=== PATIENT | female | born 1945 | race Caucasian/White ===

== ENCOUNTER → 2023-04-15 09:21 | Outpatient (REF) | payer MEDICARE, OTHER, SELFPAY ==
[2023-04-15 11:52] LABS: Blood Urea Nitrogen 32 mg/dl (7-17); Calcium 8.8 mg/dl (8.4-10.2); Carbon Dioxide 33 mmol/L (22-30); Chloride 102 mmol/L (98-107); Glucose 79 mg/dl (70-99); Potassium 4.7 mmol/L (3.5-5.1); Sodium 135 mmol/L (135-145); eGFR > 60.00
== END ==
LOC: REG 09:21
PROVIDERS: ATTENDING PHYSICIAN Nurse Practitioner Adult Health; FAMILY PHYSICIAN Internal Medicine
DX: I10 Essential (primary) hypertension (principal)
CPT/HCPCS: 36415; 80048

== ENCOUNTER → 2023-05-15 16:15 | Outpatient (REF) | payer MEDICARE, OTHER, SELFPAY ==
[2023-05-15 17:59] LABS: Creatine Phosphokinase 67 U/L (30-135)
[2023-05-15 18:01] LABS: Erythrocyte Sed Rate 56 mm/hour (0-20)
[2023-05-15 18:39] LABS: TSH 1.44 uIU/ml (0.47-4.68)
[2023-05-15 19:14] LABS: Vitamin B12 976 pg/ml (239-931)
== END ==
LOC: REG 16:15
PROVIDERS: ATTENDING PHYSICIAN Specialist; FAMILY PHYSICIAN Internal Medicine
DX: M79.10 Myalgia, unspecified site (principal); D51.8 Other vitamin B12 deficiency anemias; E03.9 Hypothyroidism, unspecified
CPT/HCPCS: 36415; 82550; 82607; 82746; 84436; 84443; 85652; 86140

== ENCOUNTER 2023-06-24 15:44 | Inpatient (IN) | payer MEDICARE, OTHER, SELFPAY ==
[2023-06-24] VITALS (10 sets, daily range): BP systolic 94–126; BP diastolic 43–69; PULSE 73–86; BMI 22.8; BMI 23.1
[2023-06-24 11:40] LABS: % Basophils 0.6 % (0-2); % Immature Granulocytes 0.4 % (0-0.5); % Lymphocytes 22.9 % (20.5-51.1); % Monocytes 9.9 % (1.7-9.3); % Neutrophils 64.2 % (42.2-75.2); Absolute Basophils 0.1 10^3/uL (0-0.2); Absolute Eosinophils 0.2 10^3/uL (0-0.7); Absolute Lymphocytes 2.4 10^3/uL (1.2-3.4); Absolute Neutrophils 6.7 10^3/uL (1.4-6.5); Hematocrit 37.1 % (37.0-47.0); Hemoglobin 12.3 g/dL (12.0-16.0); Mean Corp Hgb Conc. 33.2 g/dL (33.0-37.0); Mean Corpuscular Hgb 30.1 pg (27.0-31.0); Mean Corpuscular Volume 90.9 fL (81.0-99.0); Mean Platelet Volume 10.1 fL (7.4-10.4); Nucleated Red Blood Cells % 0 %; Platelet Count 311 10^3/uL (130-400); Red Blood Cell Count 4.08 10^6/uL (4.20-5.40); Red Cell Dist. Width 14.4 % (11.5-14.5); White Blood Cell Count 10.5 10^3/uL (4.8-10.8)
[2023-06-24 11:55] LABS: ALT (SGPT) 26 U/L (0-35); AST (SGOT) 32 U/L (14-36); Albumin 4.2 g/dl (3.5-5.0); Alkaline Phosphatase 72 U/L (38-126); Blood Urea Nitrogen 79 mg/dl (7-17); Calcium 9.8 mg/dl (8.4-10.2); Carbon Dioxide 25 mmol/L (22-30); Chloride 102 mmol/L (98-107); Glucose 99 mg/dl (70-99); Potassium 4.8 mmol/L (3.5-5.1); Sodium 134 mmol/L (135-145); Total Bilirubin 0.5 mg/dl (0.2-1.3); Total Protein 7.1 g/dl (6.3-8.2); eGFR 30.13
[2023-06-24 12:07] LABS: Troponin I < 0.012 ng/ml
--- NOTE | 2023-06-24 13:29 | ED.GENMED ---
History of Present Illness
General
Chief Complaint: Chest Pain
Time Seen by Provider: 06/24/23 13:10
Travel History
Have you had any contact with someone who has COVID-19?: No
Do you have any symptoms of coronavirus? Fever > 100 degrees, chills, cough, shortness of breath, sore throat, loss of taste or smell, muscle aches, or headache?: No
History of Present Illness
History of Present Illness:
78-year-old female with history of kyn-ogtxpaa-mhwggzgiy diabetes, hypertension, hyperlipidemia, and lung cancer presents to the emergency department for evaluation chest pain shortness of breath ongoing for the past week. Symptoms increased today
to at her primary care physician who referred her to the emergency department. She also endorses diarrhea, no abdominal pain or vomiting, over the past 1 to 2 weeks. Has had generally poor oral intake over this time as well. Does take a diuretic
but does not take it every day, uses this on demand for leg swelling.
Past History
Past History
ED Past Medical History: None and Other (Patient takes Lasix on p.r.n. basis for peripheral edema of uncertain etiology)
ED Past Surgical History: Other (Patient is status post tonsillectomy and thyroidectomy. )
Patient has exhibited threatening behavior?: No
PSI?: No
Social History
Tobacco: Smoker
Personal: Single
Living: alone
Employment: Retired
Family History
Family History: Negative Diabetes, Hypertension, Early CAD, Asthma or Cancer
Review of Systems
Review of Systems
Allergies reviewed?: Yes
All Other Systems: ROS reviewed and negative except as documented in HPI and ROS
Phy Exam
Physical Exam
Physical Exam:
GEN: Well appearing, NAD, WDWN
HEENT: Oral mucosa moist, no scleral icterus
Cardiac: Regular rate and rhythm, no murmurs
Lung: No respiratory distress, no tachypnea
MSK: No gross deformity or injuries
Skin: Good color, no pallor or jaundice, no rashes
Neuro: AO x3, moves all extremities freely
Psych: Calm, cooperative
Scores
Heart Score for Chest Pain Patients
STEMI patient?: No
History: Slightly or Non-Suspicious
ECG: Normal
Age: >/= 65 years
Risk Factors: 1 or 2 Risk Factors
Troponin: </= Normal Limit
Heart Score for Chest Pain Patients: 3
Heart Score Risk: 2.5% MACE over next 6 weeks
Course
Orders/Labs/Results
Orders:
Orders
06/24/23 11:19
EKG [Electrocardiogram (*1)] Urgent
Reason for Study: Chest Pain
EKG- Treatment ONCE
06/24/23 11:27
Complete Blood Count/With Diff Urgent
Comprehensive Metabolic Panel Urgent
Magnesium Urgent
Phosphorus Urgent
Comment: MAG & PHOS ADDED ON BY FLOOR 3:20PM 06-23=-24
Troponin I Urgent
06/24/23 13:27
0.9% Sodium Chloride 1000 ml [Nss] 1,000 ml IV BOLUS
06/24/23 13:28
CR Chest - 2 Views Urgent
Comment:
Reason For Exam: chest pain/SOB
06/24/23 Dinner
Regular
At Your Request: Limited, Physics Instructor Required
Does patient need a safe tray?: No
06/24/23 15:21
Add On- LAB Urgent
Tests Added?: mag phos
06/24/23 15:22
Admit/Transfer Patient As Directed
Co-Sign Provider:
Level of Care: Inpatient admission
Assign to:: Telemetry
Physician / Group: susan espinosa
Diagnosis: colton 2/2 diarrhea/ diuretics/decreased oral intake
Reason for Telemetry: Arrhythmia
Date to Stop Telemetry: 06/27/23
Time to Stop Telemetry: 11:00
Reason for Hospitalization: colton 2/2 diarrhea/ diuretics/decreased oral intake
Expected length of stay greater than two midnights?: Yes
ELOS- Estimated Length of Stay in days: 3
I certify the patient meets the requirements for IP care: Yes
Code Status As Directed
Resuscitation Status: Full Code
Urinalysis Reflex To Culture Routine
06/24/23 15:27
Stool Culture Routine
YORDY Source: Feces/Stool
Specimen Description:
Stool For WBC Routine
YORDY Source: Feces/Stool
Specimen Description:
06/24/23 15:30
0.9% Sodium Chloride 1000 ml [Nss] 1,000 ml IV 100 mls/hr
06/24/23 17:03
COVID-19 Antigen Urgent
Source: Nasal Swab
06/27/23 11:00
DC Protocol for Telemetry ONCE
Abnormal Lab Results
06/24/23
11:27
RBC 4.08 L 10^6/uL
(4.20-5.40)
Absolute Neuts (auto) 6.7 H 10^3/uL
(1.4-6.5)
Absolute Monos (auto) 1.0 H 10^3/uL
(0.1-0.6)
Monocytes % 9.9 H %
(1.7-9.3)
Sodium 134 L mmol/L
(135-145)
BUN 79 H mg/dl
(7-17)
Creatinine 1.7 H mg/dL
(0.6-1.0)
Phosphorus 5.9 H mg/dl
(2.5-4.5)
06/24/23 11:27
06/24/23 11:27
Vital Signs
Initial and Last Documented VS:
Initial Vital Signs
Temp Pulse Resp BP Pulse Ox
98.6 F 77 18 101/63 94
06/24/23 11:16 06/24/23 11:16 06/24/23 11:16 06/24/23 11:16 06/24/23 11:16
Last Documented Vital Signs
Temp Pulse Resp BP Pulse Ox
98.6 F 83 14 101/59 100
06/24/23 11:16 06/24/23 19:15 06/24/23 19:15 06/24/23 19:00 06/24/23 19:15
MDM/Problems Addressed
MDM/Problems Addressed:
Patient's symptoms are likely on the basis of her acute kidney injury and severe uremia. EKG is nonischemic and troponins are negative. Will admit for IV fluids and further assessment
Comment
Comment:
EKG independently interpreted by me shows normal sinus rhythm at a rate of [address] changes, T wave flattening noted inferiorly, no change compared to prior tracing from October 2021
*Critical Care Note
Total Time (30-74mins, 75-104mins- exclusive of procedures): Not Applicable
ED Attending Note
-
Portions of this chart may have been created with voice recognition software.� Occasional wrong word or��sound alike� substitutions may have occurred due to the inherent limitations of voice recognition software.
Discharge Plan
Departure
Patient Disposition: Admit
Date of Disposition: 06/24/23
Time of Disposition: 14:13
Admit to: Med/Surg
Presentation/result/management discussed w/ accepting MD/DO: Hospitalist
Discharge Problem:
Acute kidney injury
Interventions
Interventions:
*Risk Screen - Suicide Last Done: 06/24/23 12:09
*General Assessment Last Done: 06/24/23 11:25
*Neglect/Abuse Screening Last Done: 06/24/23 12:09
ED- Fall Risk Assessment Last Done: 06/24/23 12:10
*ED COVID-19 Vaccine History Last Done: 06/24/23 12:09
ED- Cardiac Assessment Last Done: 06/24/23 12:10
[2023-06-24] MEDS: NSS 1000 IV ×2 (13:54→17:13)
--- NOTE | 2023-06-24 14:38 | HPS.HSE ---
Family Physician
-
Family Physician: Jewels Levy
Chief Complaint
-
Dizziness with standing, decreased oral intake, diarrhea x 4 episodes
History of Present Illness
78-year-old female complaining of 2 days decreased oral intake with watery diarrhea x 4 episodes brown in color, dizziness upon standing only. She denies any diarrhea today. She reports despite the symptoms she did take her lisinopril and
hydrochlorothiazide. She denies any recent antibiotics, or travel. She denies fever, chills, chest pain, palpitations, shortness breath, cough, abdominal pain, nausea, vomiting, urinary symptoms. She does report she did void this a.m. small
amount. She also states that she had recent exposure to her friend 5 days ago who currently has COVID. Patient reports she had COVID October 2022, February 2023 despite 7 COVID vaccines. Other past medical history includes nicotine abuse quit 4
years ago, non-small cell lung CA Dx September 2018 status post radiation, new nodule found due for radiation at [facility], HTN, HLD, paroxysmal A-fib status post cardiac ablation June 2022, DM2, arthritis, osteopenia, chronic peripheral neuropathy,
chronic back pain, chronic leg spasms, chronic left arm lymphedema from breast radiation, benign breast nodule removal, spinal stenosis, scoliosis wears back brace, partial thyroidectomy, benign 9 tumors removed from thyroid, parathyroidectomy,
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
shingles, encephalitis as child, dental implants
Medical History
Past Medical History
Past Medical History: Reports Other
Additional Past Medical History:
HTN
HLD
Paroxysmal A-fib
DM2
A-fib with ablation June 2022 [facility]
Arthritis
Chronic peripheral neuropathy/chronic back pain
Lymphedema left arm from breast radiation
COVID October 2022, February 2023
Non-small cell lung CA September 2018 status post radiation left lower lobe, recent new nodule [facility]
Spinal stenosis
Scoliosis wears back brace
Tumor left breast removal benign, bilateral breast augmentation
Partial thyroidectomy, 9 tumors removal from thyroid
Parathyroidectomy
lymph nodes removed anterior neck
Minus radiation as
Glaucoma with laser treatment goals I
Shingles with chronic neuropathy right side of head
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
Encephalitis as child
Dental implants
Past Surgical History: Reports Other
Additional Past Surgical History:
Tonsillectomy
Thyroidectomy partial�benign
9 tumors removed from thyroid benign
Anterior lymph node removal neck benign
Left breast lump removal benign
Bilateral breast implants
Cataract extraction bilateral lens implants
Tonsillectomy/adenoidectomy
Laser eye treatment glaucoma
Dental implants
Cardiac ablation June 2022 [facility]
Parathyroidectomy
Social History
Tobacco: Former Smoker (20 years 1/2 pack a day quit approximately 50 years ago)
Alcohol: None
Drug: None
Personal: Single
Living: Alone
Employment: Retired
Family History
Family History: Other (Mother ductal carcinoma, CVA/ID age 70, father age 64 mesothelioma, brother was murdered)
Allergies / Home Medications
Allergies reflects when Allergies were last updated in [employer].
Home Medications with original date entered in [employer]
Allergy/Medication List:
Allergies
Allergy/AdvReac Type Severity Reaction Status Date / Time
adhesive tape Allergy Unknown reddness & Verified 11/12/21 15:30
itchy
erythromycin base Allergy Unknown Shortness Verified 11/12/21 15:30
[Erythromycin Base] of Breath
Gadolinium-Containing Allergy Unknown Fatigue Verified 11/12/21 15:30
Contrast Medi and
breathing
Home Medications
Cataplex F 1 tab PO DAILY Supplement 02/17/20
Neurotro Phin 1 tab PO DAILY Supplement 02/17/20
Ligaplex 2 1 cap PO DAILY Supplement 06/27/21
cod liver oil 1 cap PO DAILY Supplement 06/27/21
guaifenesin 1,200 mg tablet, extended release 12 hr (Mucinex) 1,200 mg PO DAILY Cough 06/27/21
rosuvastatin 5 mg tablet 5 mg PO DAILY High cholesterol 06/27/21
vitamin B complex 1 tab PO DAILY Supplement 06/27/21
Cardio Supplement 1 tab PO DAILY 06/24/23
Renafood Supplement 1 tab PO DAILY 06/24/23
bisacodyl 5 mg tablet (Laxative (bisacodyl)) 10 mg PO DAILYPRN PRN constipation 06/24/23
calcium carbonate 650 mg PO DAILY 06/24/23
cholecalciferol (vitamin D3) 50 mcg (2,000 unit) tablet 50 mcg PO DAILY 06/24/23
ciclopirox 8 % topical solution 1 applic topical BATISTA left big toe 06/24/23
citicoline 500 mg capsule ([employer]) 500 mg PO DAILY 06/24/23
coenzyme Q10 100 mg capsule (CoQ-10) 100 mg PO DAILY 06/24/23
cyclobenzaprine 5 mg tablet 5 mg PO TID PRN muscle spasms 06/24/23
diltiazem HCl 120 mg capsule,24 hr,extended release (Tiadylt ER) 120 mg PO DAILY 06/24/23
hydrochlorothiazide 12.5 mg capsule 12.5 mg PO DAILY 06/24/23
ipratropium 0.5 mg-albuterol 3 mg (2.5 mg base)/3 mL nebulization soln 3 ml inhalation R Q6HPRN PRN sob 06/24/23
lidocaine 5 % topical patch 1 patch topical DAILY PRN apply to right shoulder 06/24/23
lisinopril 5 mg tablet 5 mg PO DAILY 06/24/23
lutein 1 cap PO DAILY 06/24/23
magnesium gluconate 12.5 mg magnesium (250 mg) tablet 500 mg PO DAILY 06/24/23
meloxicam 7.5 mg tablet 15 mg PO DAILY 06/24/23
metformin 500 mg tablet,extended release 24 hr 1,000 mg PO QPM 06/24/23
metformin 500 mg tablet,extended release 24 hr 500 mg PO DAILY 06/24/23
niacin 50 mg tablet 50 mg PO DAILY 06/24/23
nitroglycerin 2 % transdermal ointment (Nitro-Bid) 0 inch transdermal BID PRN apply to right 3rd and 4th toes 06/24/23
pregabalin 50 mg capsule 50 mg PO TID 06/24/23
tramadol 50 mg tablet 50 mg PO Q6H PRN severe pain 06/24/23
Review of Systems
-
History Source: Patient
A 12 point ROS was completed and negative except as noted: Yes
Constitutional: Denies Fever, Fatigue or Chills
EENT: Denies Sore Throat or Runny Nose
Respiratory: Denies Cough or Trouble Breathing
Cardiac: Denies Chest Pain, Diaphoresis, Palpitations or Syncope
Abdomen/GI: Reports Diarrhea (Watery brown x 4 episodes yesterday 06/23/2023); Denies Abdominal Pain, Nausea, Vomiting, Constipated, Bloody Stools or Black Stools
: Denies Dysuria, Frequency, Flank Pain, Incontinence, Difficulty Voiding or Urgency
Musculoskeletal: Denies Joint Pain or Edema
Skin: Denies Itching or Rash
Neurological: Reports Dizzy (With standing); Denies Headache or Weakness
Endocrine: Reports No Symptoms
Hematologic/Lymphatic: Reports No Symptoms
Psych: Reports Calm
Physical Exam
Vital Signs
Vital Signs
Temp Pulse Resp BP Pulse Ox
98.6 F 71 15 106/69 97
06/24/23 11:16 06/24/23 12:06 06/24/23 12:06 06/24/23 12:06 06/24/23 12:06
Physical Exam
General: Comfortable and Conversant; No Pain, Fever or Chills
HEENT: NormoCephalic, Anicteric, PERRLA, [place] Conjunctivae, No Ptosis and Other (Dry oral mucosa)
Respiratory: Clear; No Wheezes, Rales or Rhonchi
Cardiac: S1/S2 and Regular Rhythm; No Murmur, Rub, Gallop or Peripheral Edema
Breast: Deferred by me
GI: Soft, Non Tender, Non Distended, Normal Bowel Sounds and No Hepatosplenomegaly
Rectal: Deferred by Provider
Genito-urinary: Deferred by me
Musculoskeletal: No Clubbing, No Cyanosis and No Edema
Skin: Warm and Dry; No Rash
Neuro: AO x 3, No Motor Deficits, Nonfocal/grossly intact, Cranial Nerves Intact and No Sensory Deficits; No Slurred Speech, Facial Droop or Tremors
Psych: Calm
Laboratory Results
-
06/24/23 11:27
06/24/23 11:27
Laboratory Results
Total Bilirubin 0.5 mg/dl (0.2-1.3) 06/24/23 11:27
AST 32 U/L (14-36) 06/24/23 11:27
ALT 26 U/L (0-35) 06/24/23 11:27
Alkaline Phosphatase 72 U/L (38-126) 06/24/23 11:27
Troponin I < 0.012 ng/ml 06/24/23 11:27
Impression/Plan
-
Impression/plan:
Admit to telemetry
#SOCORRO 2/2 dehydration/DIARRHEAL losses/decreased oral intake/diuretic use
Recent COVID exposure 5 days ago
-Creat 1.7 bun 79 (baseline 0.24 March 2023)
-IV NSS 1 L given in ER , continue IV NSS at 100 cc/h
-Hold HCTZ 12.5 mg daily, lisinopril 5 mg daily, metformin 500mg a.m., 1000 mg p.m.
-Follow BMP
-Diarrhea returns, check stool WBC, stool culture
#Acute dizziness concern for orthostatic hypotension given SOCORRO
-Check orthostatics
-IV NSS 1 L then 100 cc/h
-PT/OT/case management consult
CXR: No acute cardiopulmonary process
EKG: NSR 75 bpm, QTc 422 MS no significant change from October 2021
#Non-small cell lung CA September 2018 status post radiation left lower lobe
recent new nodule due for stereotactic radiation [facility] Dr. Juan Garcia
#HTN-benign
106/
-Continue diltiazem with hold parameters sbp<110
#HLD
-Continue cod liver oil, Crestor 5 mg daily
#Paroxysmal A-fib
#Hx cardiac ablation June 2022 [facility]
-Continue diltiazem ER 120 mg daily with hold parameters sbp<110
#DM2
-Accu-Cheks with SSI, check HgbA1c
-Hold metformin due to SOCORRO
#Arthritis/osteopenia
-Continue vitamin D3, , calcium carbonate
-Hold meloxicam due to SOCORRO
#Chronic peripheral neuropathy/chronic back pain/leg spasms
-Continue Lyrica 50 mg p.o. 3 times daily, tramadol 50 mg every 6 hours as needed
-Continue Flexeril 5 mg 3 times daily as needed
# Chronic lymphedema left arm from breast radiation
#COVID October 2022, February 2023
#Spinal stenosis
#Scoliosis wears back brace
#Partial thyroidectomy, 9 tumors removal from thyroid benign
#Parathyroidectomy
#lymph nodes removed anterior neck
Other PMH:
Tumor left breast removal benign, bilateral breast augmentation
Thymus radiation as
Glaucoma with laser treatment at [facility]
Shingles with chronic neuropathy right side of head
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
Encephalitis as child
Dental implants
DVT prophylaxis
SCDs
Full code
[2023-06-24 15:54] LABS: Phosphorus 5.9 mg/dl (2.5-4.5)
[2023-06-24 17:45] LABS: COVID-19 Antigen Negative (Negative)
[2023-06-24 21:02] LABS: Urine Albumin Negative (Neg - Trace); Urine Bilirubin Negative (Negative); Urine Character Clear (Clear); Urine Color Yellow; Urine Glucose Negative (Negative); Urine Ketone Negative (Negative); Urine Leukocyte Negative (Negative); Urine Nitrite Negative (Negative); Urine Occult Blood Negative (Negative); Urine Specific Gravity 1.015 (<1.030); Urine Urobilinogen Negative (Neg - 1+)
--- NOTE | 2023-06-24 22:49 | W.PN.UPDATE ---
Update Note
Progress Note Update
This note serves as an addendum to the H&P by CANDACE Michaels on June 24, 2023.
78-year-old female with past medical history of COVID in October 2022, recent exposure to COVID, nicotine abuse quit 4 years ago, non-small cell lung CA Dx September 2018 status post radiation, new nodule found due for radiation at [facility], HTN, HLD,
paroxysmal A-fib status post cardiac ablation June 2022, DM2, arthritis, osteopenia, chronic peripheral neuropathy, chronic back pain, chronic leg spasms, chronic left arm lymphedema from breast radiation, benign breast nodule removal, spinal
stenosis, scoliosis wears back brace, partial thyroidectomy, benign 9 tumors removed from thyroid, parathyroidectomy, lymph nodes removed from anterior neck, bilateral breast augmentation, thymus radiation as child, glaucoma status post laser
treatment at [facility] eye, shingles with chronic neuropathy right side of head, chronic left eye vision impairment from prior shingles, encephalitis as child, dental implants presented reporting 2 days of decreased oral intake with watery diarrhea x 4
episodes with some brown color, and dizziness upon standing only. She denies any diarrhea today. She reports despite the symptoms she did take her lisinopril and hydrochlorothiazide -- she is noted to take the diuretics for leg swelling but not
everyday. She denies any recent antibiotics, or travel. She reported atypical constant chest pain for about 1 week on her left lower chest. She denies fever, chills, palpitations, shortness breath, cough, abdominal pain, nausea, vomiting, urinary
symptoms.
Vital Signs
Afebrile
HR normal
Blood Pressure Stable
On room air
Physical Exam
General: Not in acute distress
HEENT: Normocephalic
Respiratory: Clear to Auscultation Bilaterally
Cardiac: S1/S2 and Regular Rhythm
GI: Soft, Non Tender, Non Distended, Normal Bowel Sounds
Musculoskeletal: No Cyanosis and No Edema
Skin: Warm and Dry
Neuro: AAO x 3, No Motor Deficits, Nonfocal/grossly intact, Cranial Nerves Intact and No Sensory Deficits
Psych: Calm
Assessment/Plan
#Presentation with Diarrhea or Poor Oral Intake
#SOCORRO 2/2 dehydration/DIARRHEAL losses/decreased oral intake/diuretic use
Recent COVID exposure 5 days ago
-Creat 1.7 bun 79 (baseline 0.24 March 2023)
-IV NSS 1 L given in ER , continue IV NSS at 100 cc/h
-Per reports, patient does take a diuretic but does not take it every day, uses this on demand for leg swelling.
-Hold HCTZ 12.5 mg daily, lisinopril 5 mg daily, metformin 500mg a.m., 1000 mg p.m.
-Follow BMP
-If diarrhea returns, check stool WBC, stool culture
-Orthostatic vital signs
#Acute dizziness concern for orthostatic hypotension given SOCORRO
-Check orthostatics
-IV NSS 1 L then continue at 100 cc/h
-PT/OT/case management consult
CXR: No acute cardiopulmonary process
EKG: NSR 75 bpm, QTc 422 MS no significant change from October 2021
#Non-small cell lung CA September 2018 status post radiation left lower lobe
recent new nodule due for stereotactic [facility]
#HTN-benign
106/
-Continue diltiazem with hold parameters sbp<110
#HLD
-Continue cod liver oil, Crestor 5 mg daily
#Paroxysmal A-fib
#Hx cardiac ablation June 2022 [facility]
-Continue diltiazem ER 120 mg daily with hold parameters sbp<110
#DM2
-Accu-Cheks with SSI, check HgbA1c
-Hold metformin due to SOCORRO
#Arthritis/osteopenia
-Continue vitamin D3, , calcium carbonate
-Hold meloxicam due to SOCORRO
#Chronic peripheral neuropathy/chronic back pain/leg spasms
-Continue Lyrica 50 mg p.o. 3 times daily, tramadol 50 mg every 6 hours as needed
-Continue Flexeril 5 mg 3 times daily as needed
# Chronic lymphedema left arm from breast radiation
#COVID October 2022, February 2023
#Spinal stenosis
#Scoliosis wears back brace
#Partial thyroidectomy, 9 tumors removal from thyroid benign
#Parathyroidectomy
#lymph nodes removed anterior neck
Other PMH:
Tumor left breast removal benign, bilateral breast augmentation
Thymus radiation as
Glaucoma with laser treatment at [facility]
Shingles with chronic neuropathy right side of head
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
Encephalitis as child
Dental implants
COVID in October 2022, recent exposure to COVID, nicotine abuse quit 4 years ago, non-small cell lung CA Dx September 2018 status post radiation, new nodule found due for radiation at [facility], HTN, HLD, paroxysmal A-fib status post cardiac ablation June
2022, DM2, arthritis, osteopenia, chronic peripheral neuropathy, chronic back pain, chronic leg spasms, chronic left arm lymphedema from breast radiation, benign breast nodule removal, spinal stenosis, scoliosis wears back brace, partial
thyroidectomy, benign 9 tumors removed from thyroid, parathyroidectomy, lymph nodes removed from anterior neck, bilateral breast augmentation, thymus radiation as child, glaucoma status post laser treatment at [facility], shingles with chronic
neuropathy right side of head, chronic left eye vision impairment from prior shingles, encephalitis as child, dental implants
DVT prophylaxis: Heparin Subq and SCDs
Code Status: Full code
[2023-06-25] MEDS: LYRICA 50 MG PO ×3 (00:40→15:57)
[2023-06-25] MEDS: FLEXERIL 5 MG PO (01:16)
[2023-06-25 03:00] VITALS: BP 126/56
[2023-06-25 06:00] VITALS: BMI 23.3
[2023-06-25] MEDS: NSS 1000 IV (06:15)
[2023-06-25 07:00] VITALS: BP 116/62
[2023-06-25 07:21] LABS: % Basophils 0.8 % (0-2); % Immature Granulocytes 0.2 % (0-0.5); % Lymphocytes 28.9 % (20.5-51.1); % Neutrophils 54.1 % (42.2-75.2); Absolute Basophils 0.1 10^3/uL (0-0.2); Absolute Eosinophils 0.3 10^3/uL (0-0.7); Absolute Lymphocytes 2.4 10^3/uL (1.2-3.4); Absolute Neutrophils 4.5 10^3/uL (1.4-6.5); Hematocrit 33.8 % (37.0-47.0); Hemoglobin 10.9 g/dL (12.0-16.0); Mean Corp Hgb Conc. 32.2 g/dL (33.0-37.0); Mean Corpuscular Hgb 29.6 pg (27.0-31.0); Mean Corpuscular Volume 91.8 fL (81.0-99.0); Mean Platelet Volume 10.3 fL (7.4-10.4); Nucleated Red Blood Cells % 0 %; Platelet Count 257 10^3/uL (130-400); Red Blood Cell Count 3.68 10^6/uL (4.20-5.40); Red Cell Dist. Width 14.4 % (11.5-14.5); White Blood Cell Count 8.4 10^3/uL (4.8-10.8)
[2023-06-25 07:50] LABS: Blood Urea Nitrogen 57 mg/dl (7-17); Calcium 8.7 mg/dl (8.4-10.2); Carbon Dioxide 24 mmol/L (22-30); Chloride 108 mmol/L (98-107); Estimated Creatinine Clearance 37 ml/min; Glucose 89 mg/dl (70-99); HDL Cholesterol 64 mg/dl; LDL Cholesterol, Calculated 45 mg/dl; Sodium 135 mmol/L (135-145); Total Cholesterol 124 mg/dl (50-199); Triglyceride 75 mg/dl (10-149); Very Low Density Lipoprotein 15 mg/dl (0-30); eGFR 56.95
[2023-06-25] MEDS: MAGNESIUM OXIDE 500 MG PO (08:55)
[2023-06-25] MEDS: CRESTOR 5 MG PO (08:55)
[2023-06-25] MEDS: OSCAL CAL 500 500 MG PO (08:56)
[2023-06-25] MEDS: CARDIZEM CD 120 MG PO (08:56)
[2023-06-25] MEDS: MUCINEX 1200 MG PO (08:56)
[2023-06-25] MEDS: VITAMIN D3 (cholecalciferol) 50 MCG PO (08:56)
[2023-06-25] MEDS: B COMPLEX w/VITAMIN C 1 CAPLET PO (08:56)
[2023-06-25 09:40] VITALS: BP 128/82; PULSE 84; O2SAT 96
[2023-06-25 09:41] VITALS: BP 128/82
--- NOTE | 2023-06-25 09:48 | PTOTSP ---
pt demonstrates ability to complete simple ADLs, functional transfers, ambulation with supervision to no assistance. no acute OT needs identified at this time, will sign off.
--- NOTE | 2023-06-25 09:49 | PTOTSP ---
The patient was able to ambulate in the room without a device independently, and upon therapists exiting the room, the patient was getting herself to the bathroom independently. The patient anticipates returning home when discharged and has no acute
PT needs at this time. Recommend Outpatient PT to address back pain if she feels she needs. PT will sign off at this time.
[2023-06-25 10:20] LABS: Troponin I < 0.012 ng/ml
[2023-06-25 11:00] VITALS: BP 112/51
--- NOTE | 2023-06-25 11:58 | W.PN.HOSP.TC ---
Today's Communication/Plan
-
Discharge today
Assessment / Plan
Assessment / Plan
Physical Exam
General: Not in acute distress
HEENT: Normocephalic
Respiratory: Clear to Auscultation Bilaterally
Cardiac: S1/S2 and Regular Rhythm
GI: Soft, Non Tender, Non Distended, Normal Bowel Sounds
Musculoskeletal: No Cyanosis and No Edema
Skin: Warm and Dry
Neuro: AAO x 3, No Motor Deficits, Nonfocal/grossly intact, Cranial Nerves Intact and No Sensory Deficits
Psych: Calm
Assessment/Plan
#Presentation with Diarrhea or Poor Oral Intake
#SOCORRO - RESOLVED - secondary to dehydration/DIARRHEAL losses/decreased oral intake/diuretic use
-Recent COVID exposure 5 days ago
-Creat 1.7 bun 79 (baseline 0.24 March 2023)--> now 1.0
-IV NSS 1 L given in ER , then switched to IV NSS at 100 cc/h
-Per reports, patient does take a diuretic but does not take it every day, uses this on demand for leg swelling.
-Resume lisinopril 5 mg daily, metformin 500mg a.m., 1000 mg p.m.
-Hold HCTZ on discharge
-Recheck BMP outpatient
-Orthostatic vital signs
#Acute dizziness concern for orthostatic hypotension given SOCORRO
-Orthostatics negative
-PT/OT/case management consult
CXR: No acute cardiopulmonary process
EKG: NSR 75 bpm, QTc 422 MS no significant change from October 2021
#Non-small cell lung CA September 2018 status post radiation left lower lobe
recent new nodule due for stereotactic radiation Kaycee Garcia
#Hypertension
106/
-Continue diltiazem with hold parameters sbp<110
#HLD
-Continue cod liver oil, Crestor 5 mg daily
#Paroxysmal A-fib
#Hx cardiac ablation June 2022 [facility]
-Continue diltiazem ER 120 mg daily with hold parameters sbp<110
#DM2
-Accu-Cheks with SSI, check HgbA1c
-Resume Metformin on discharge
#Arthritis/osteopenia
-Continue vitamin D3, , calcium carbonate
-Hold meloxicam due to SOCORRO
#Chronic peripheral neuropathy/chronic back pain/leg spasms
-Continue Lyrica 50 mg p.o. 3 times daily, tramadol 50 mg every 6 hours as needed
-Continue Flexeril 5 mg 3 times daily as needed
# Chronic lymphedema left arm from breast radiation
#COVID October 2022, February 2023
#Spinal stenosis
#Scoliosis wears back brace
#Partial thyroidectomy, 9 tumors removal from thyroid benign
#Parathyroidectomy
#lymph nodes removed anterior neck
Other PMH:
Tumor left breast removal benign, bilateral breast augmentation
Thymus radiation as
Glaucoma with laser treatment at [facility]
Shingles with chronic neuropathy right side of head
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
Encephalitis as child
Dental implants
COVID in October 2022, recent exposure to COVID, nicotine abuse quit 4 years ago, non-small cell lung CA Dx September 2018 status post radiation, new nodule found due for radiation at [facility], HTN, HLD, paroxysmal A-fib status post cardiac ablation June
2022, DM2, arthritis, osteopenia, chronic peripheral neuropathy, chronic back pain, chronic leg spasms, chronic left arm lymphedema from breast radiation, benign breast nodule removal, spinal stenosis, scoliosis wears back brace, partial
thyroidectomy, benign 9 tumors removed from thyroid, parathyroidectomy, lymph nodes removed from anterior neck, bilateral breast augmentation, thymus radiation as child, glaucoma status post laser treatment at [facility], shingles with chronic
neuropathy right side of head, chronic left eye vision impairment from prior shingles, encephalitis as child, dental implants
DVT prophylaxis: Heparin Subq and SCDs
Code Status: Full code
More than 30 minutes spent in discharge including
Final examination of the patient
Summarizing hospital stay
Instructions for continuing care to all relevant caregivers
Preparation of discharge records, prescriptions, and referral forms
Total time spent (in minutes): 38
Anticipated Discharge: Today
Subjective/Interval History
-
Date of Service: June 25, 2023
Patient was seen and examined. She reported that her diarrhea had resolved and she is eating fine.
Objective Data
-
Labs:
Laboratory Results
06/25/23
06:40
WBC 8.4
Hgb 10.9 L
Hct 33.8 L
Plt Count 257
Sodium 135
Potassium 5.0
Chloride 108 H
Carbon Dioxide 24
BUN 57 H
Creatinine 1.0
Glucose 89
Calcium 8.7
Vital Signs:
Vital Signs
Temp Pulse Resp BP Pulse Ox
97.4 F 78 17 130/52 97
06/25/23 07:00 06/25/23 08:56 06/25/23 07:00 06/25/23 08:56 06/25/23 08:15
I&O
06/24/23 06/25/23 06/26/23
06:59 06:59 06:59
Intake Total 1320 / 1320
Balance 1320 / 1320
[2023-06-25] MEDS: NSS IV (12:35)
--- NOTE | 2023-06-25 13:49 | W.DS.TRANS ---
DC Summary - Insulation Mechanic
-
Discharge Instructions:
Discharge Diagnosis/Procedures #Presentation with Diarrhea or Poor Oral Intake
#Acute Kidney Injury - RESOLVED - secondary to
dehydration/DIARRHEAL losses/decreased oral
intake/diuretic use
#Chest wall pain from lung cancer
#Acute dizziness - RESOLVED
#Non-small cell lung cancer
#Hypertension
#Hyperlipidemia
#Paroxysmal Atrial Fibrillation
#History of cardiac ablation June 2022
#Type 2 Diabetes Mellitus
#Arthritis/osteopenia
#Chronic peripheral neuropathy/chronic back pain
/leg spasms
#Chronic lymphedema left arm from breast
radiation
#COVID October 2022, February 2023
#Spinal stenosis
#Scoliosis wears back brace
#Partial thyroidectomy, 9 tumors removal from
thyroid benign
#Parathyroidectomy
#lymph nodes removed anterior neck
Tumor left breast removal benign, bilateral
breast augmentation
Thymus radiation as infant
Glaucoma with laser treatment at [facility]
Shingles with chronic neuropathy right side of
head
Chronic left eye vision impairment from prior
shingles
Encephalitis as child
Dental implants
COVID in October 2022, recent exposure to COVID,
nicotine abuse quit 4 years ago, non-small cell
lung CA Dx September 2018 status post radiation, new
nodule found due for radiation at [facility], HTN,
HLD, paroxysmal A-fib status post cardiac
ablation June 2022, DM2, arthritis, osteopenia,
chronic peripheral neuropathy, chronic back
pain, chronic leg spasms, chronic left arm
lymphedema from breast radiation, benign breast
nodule removal, spinal stenosis, scoliosis on
back brace, partial thyroidectomy, benign tumors
removed from thyroid, parathyroidectomy, lymph
nodes removed from anterior neck, bilateral
breast augmentation, thymus radiation as child,
glaucoma status post laser treatment at [facility]
eye hospital, shingles with chronic neuropathy
right side of head, chronic left eye vision
impairment from prior shingles, encephalitis as
child, dental implants
Diet As tolerated,Low Fat,Low Cholesterol
Activity As tolerated
Driving Restrictions Not until seen by your Dr
Blood Work Recheck CBC, BMP and Magnesium with your primary
care provider by 06/29/23
Specialty Instructions Weigh Daily
Instructions:
Stand-Alone Forms:
Changes to Home Medications: Yes
Discharge Medications:
DC Medications w/original date entered in [facility]
Cataplex F 1 tab PO DAILY Supplement 02/17/20
Neurotro Phin 1 tab PO DAILY Supplement 02/17/20
Ligaplex 2 1 cap PO DAILY Supplement 06/27/21
cod liver oil 1 cap PO DAILY Supplement 06/27/21
guaifenesin 1,200 mg tablet, extended release 12 hr (Mucinex) 1,200 mg PO DAILY Cough 06/27/21
rosuvastatin 5 mg tablet 5 mg PO DAILY High cholesterol 06/27/21
vitamin B complex 1 tab PO DAILY Supplement 06/27/21
Cardio Supplement 1 tab PO DAILY Supplement 06/24/23
Renafood Supplement 1 tab PO DAILY Supplement 06/24/23
bisacodyl 5 mg tablet (Laxative (bisacodyl)) 10 mg PO DAILYPRN PRN constipation 06/24/23
calcium carbonate 650 mg PO DAILY Supplement 06/24/23
cholecalciferol (vitamin D3) 50 mcg (2,000 unit) tablet 50 mcg PO DAILY Supplement 06/24/23
ciclopirox 8 % topical solution 1 applic topical BATISTA left big toe 06/24/23
citicoline 500 mg capsule (Cognitive Health) 500 mg PO DAILY Supplement 06/24/23
coenzyme Q10 100 mg capsule (CoQ-10) 100 mg PO DAILY Supplement 06/24/23
cyclobenzaprine 5 mg tablet 5 mg PO TID PRN muscle spasms 06/24/23
diltiazem HCl 120 mg capsule,24 hr,extended release (Tiadylt ER) 120 mg PO DAILY Heart Disease/Condition 06/24/23
ipratropium 0.5 mg-albuterol 3 mg (2.5 mg base)/3 mL nebulization soln 3 ml inhalation R Q6HPRN PRN sob 06/24/23
lidocaine 5 % topical patch 1 patch topical DAILY PRN apply to right shoulder 06/24/23
lisinopril 5 mg tablet 5 mg PO DAILY Blood Pressure 06/24/23
lutein 1 cap PO DAILY Supplement 06/24/23
magnesium gluconate 12.5 mg magnesium (250 mg) tablet 500 mg PO DAILY Supplement 06/24/23
meloxicam 7.5 mg tablet 15 mg PO DAILY Pain 06/24/23
metformin 500 mg tablet,extended release 24 hr 1,000 mg PO QPM Diabetes 06/24/23
metformin 500 mg tablet,extended release 24 hr 500 mg PO DAILY Diabetes 06/24/23
niacin 50 mg tablet 50 mg PO DAILY Supplement 06/24/23
nitroglycerin 2 % transdermal ointment (Nitro-Bid) 0 inch transdermal BID PRN apply to right 3rd and 4th toes 06/24/23
pregabalin 50 mg capsule 50 mg PO TID Pain 06/24/23
tramadol 50 mg tablet 50 mg PO Q6H PRN severe pain 06/24/23
Home Medication Changes
Meloxicam and Metformin are on hold until close outpatient follow-up with primary care provider and repeat CBC and BMP done.
Hydrochlorothiazide stopped.
Pending Results: No
Total time spent discharging patient (in min): 38
[2023-06-25 14:37] VITALS: BMI 23.3
[2023-06-25 15:15] VITALS: BP 125/68
[2023-06-25 16:42] LABS: Troponin I < 0.012 ng/ml
--- NOTE | 2023-07-02 09:07 | W.DCSUMMARY ---
Discharge Summary
Discharge Data
Date of Admission: 06/24/23
Date of Discharge: 06/25/23
Total time spent discharging patient (in min): 38
-
Pending Results: No
Hospital Course
78-year-old female complaining of 2 days decreased oral intake with watery diarrhea x 4 episodes brown in color, dizziness upon standing only. Patient was admitted, given intravenous fluids, and antihypertensives were held. Acute Kidney Injury was
treated. Patient's acute kidney injury resolved, patient was ready for discharge, and her hydrochlorothiazide was held on discharge.
Discharge Plan
-
Patient Disposition: Home (Routine Discharge)
Discharge Diagnosis/Procedures: #Presentation with Diarrhea or Poor Oral Intake
#Acute Kidney Injury - RESOLVED - secondary to dehydration/DIARRHEAL losses/decreased oral intake/diuretic use
#Chest wall pain from lung cancer
#Acute dizziness - RESOLVED
#Non-small cell lung cancer
#Hypertension
#Hyperlipidemia
#Paroxysmal Atrial Fibrillation
#History of cardiac ablation June 2022
#Type 2 Diabetes Mellitus
#Arthritis/osteopenia
#Chronic peripheral neuropathy/chronic back pain/leg spasms
#Chronic lymphedema left arm from breast radiation
#COVID October 2022, February 2023
#Spinal stenosis
#Scoliosis wears back brace
#Partial thyroidectomy, 9 tumors removal from thyroid benign
#Parathyroidectomy
#lymph nodes removed anterior neck
Tumor left breast removal benign, bilateral breast augmentation
Thymus radiation as
Glaucoma with laser treatment at [facility]
Shingles with chronic neuropathy right side of head
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
Encephalitis as child
Dental implants
COVID in October 2022, recent exposure to COVID, nicotine abuse quit 4 years ago, non-small cell lung CA Dx September 2018 status post radiation, new nodule found due for radiation at [facility], HTN, HLD, paroxysmal A-fib status post cardiac ablation June
2022, DM2, arthritis, osteopenia, chronic peripheral neuropathy, chronic back pain, chronic leg spasms, chronic left arm lymphedema from breast radiation, benign breast nodule removal, spinal stenosis, scoliosis on back brace, partial thyroidectomy,
benign tumors removed from thyroid, parathyroidectomy, lymph nodes removed from anterior neck, bilateral breast augmentation, thymus radiation as child, glaucoma status post laser treatment at [facility], shingles with chronic neuropathy
right side of head, chronic left eye vision impairment from prior shingles, encephalitis as child, dental implants
Condition: Fair
Diet: As tolerated, Low Fat and Low Cholesterol
Activity: As tolerated
Driving Restrictions: Not until seen by your Dr
Blood Work: Recheck CBC, BMP and Magnesium with your primary care provider by 06/29/23
Specialty Instructions: Weigh Daily- Call MD for wt gain/loss 3 lbs overnight/5 lbs in 1 week
Referrals:
Jewels Levy MD [Family Provider] - in one to two days
Additional Discharge Medication Instructions: Meloxicam and Metformin are on hold until close outpatient follow-up with primary care provider and repeat CBC and BMP done.
Hydrochlorothiazide stopped.
Prescriptions:
Continued
Neurotro Phin
1 tab PO DAILY
Cataplex F
1 tab PO DAILY
cod liver oil 1 CAP capsule
1 cap PO DAILY
Patient Comments:
06/24/2023, sharon Loredo Cod Liver oil plus vit D3.
Ligaplex 2
1 cap PO DAILY
vitamin B complex 1 TAB tablet
1 tab PO DAILY
rosuvastatin 5 MG tablet
5 mg PO DAILY
guaifenesin [Mucinex] 1,200 MG tablet extended release 12hr
1,200 mg PO DAILY
ipratropium-albuterol 0.5 mg-3 mg(2.5 mg base)/3 mL Solution For Nebulization
3 ml INHALATION R Q6HPRN PRN (Reason: sob)
niacin 50 mg Tablet
50 mg PO DAILY
tramadol 50 mg Tablet
50 mg PO Q6H PRN (Reason: severe pain)
magnesium gluconate 12.5 mg magne- sium (250 mg) Tablet
500 mg PO DAILY
ciclopirox 8 % Solution
1 applic TOPICAL BATISTA
Patient Comments:
06/24/2023, per pt., she applies this med. to her left big toe and keeps it on for a week and then removes it on Sundays and reappl.
calcium carbonate 600 mg calcium (1,500 mg) Tablet
650 mg PO DAILY
diltiazem HCl [Tiadylt ER] 120 mg Capsule,Extended Release 24 Hr
120 mg PO DAILY
lidocaine 5 % Adhesive Patch,Medicated
1 patch TOPICAL DAILY PRN (Reason: apply to right shoulder)
Nitro-Bid 2 % Ointment
0 inch TRANSDERMAL BID PRN (Reason: apply to right 3rd and 4th toes)
lisinopril 5 mg Tablet
5 mg PO DAILY
Laxative (bisacodyl) 5 mg Tablet
10 mg PO DAILYPRN PRN (Reason: constipation)
coenzyme Q10 [CoQ-10] 100 mg Capsule
100 mg PO DAILY
cyclobenzaprine 5 mg Tablet
5 mg PO TID PRN (Reason: muscle spasms)
pregabalin 50 mg Capsule
50 mg PO TID
cholecalciferol (vitamin D3) 50 mcg (2,000 unit) Tablet
50 mcg PO DAILY
Cognitive Health 500 mg Capsule
500 mg PO DAILY
Cardio Supplement
1 tab PO DAILY
Renafood Supplement
1 tab PO DAILY
lutein
1 cap PO DAILY
Held
meloxicam 7.5 mg Tablet
15 mg PO DAILY
Hold Instructions: Resume on 07/16/23. Discuss with your primary care physician before you consider resuming this medication.
metformin 500 mg Tablet Extended Release 24 Hr
500 mg PO DAILY
Hold Instructions: Resume on 07/02/23. Discuss KUMAR with your primary care physician before resuming this medication.
metformin 500 mg Tablet Extended Release 24 Hr
1,000 mg PO QPM
Hold Instructions: Resume on 07/02/23. Discuss KUMAR with your primary care physician before resuming this medication.
Discontinued
hydrochlorothiazide 12.5 mg Capsule
12.5 mg PO DAILY
Discharge Orders:
Discharge Patient (As Directed); Ordered 06/25/23
Ordered By: Timur Rose
Discharge Date and Time
Discharge Date/Time: 06/25/23 18:33
Print Language: SLOVENIAN
== END 2023-06-25 18:33 | disposition home or self-care (01) | DRG 684 ==
LOC: 3 WEST ACU 15:44
PROVIDERS: Clinical Nurse Specialist Family Health; ADMITTING PHYSICIAN Hospitalist; EMERGENCY PHYSICIAN Student in an Organized Health Care Education/Training Program; FAMILY PHYSICIAN Internal Medicine
DX: N17.9 Acute kidney failure, unspecified (principal); F17.200 Nicotine dependence, unspecified, uncomplicated; Z11.52 Encounter for screening for COVID-19; I10 Essential (primary) hypertension; E78.5 Hyperlipidemia, unspecified; I48.0 Paroxysmal atrial fibrillation; E11.42 Type 2 diabetes mellitus with diabetic polyneuropathy; M19.90 Unspecified osteoarthritis, unspecified site; M85.80 Other specified disorders of bone density and structure, unspecified site; M48.00 Spinal stenosis, site unspecified; M41.9 Scoliosis, unspecified; I95.1 Orthostatic hypotension
CPT/HCPCS: 71046; 80048; 80053; 80061; 81003; 83036; 83735; 84100; 84484; 85025; 87811; 93005; 96360; 96361; 97162; 97165; 99285

== ENCOUNTER → 2023-06-26 11:22 | Outpatient (REF) | payer MEDICARE, OTHER, SELFPAY ==
[2023-06-26 12:16] LABS: % Basophils 0.8 % (0-2); % Eosinophils 2.6 % (0-6); % Immature Granulocytes 0.3 % (0-0.5); % Lymphocytes 21.4 % (20.5-51.1); % Monocytes 7.2 % (1.7-9.3); % Neutrophils 67.7 % (42.2-75.2); Absolute Basophils 0.1 10^3/uL (0-0.2); Absolute Eosinophils 0.2 10^3/uL (0-0.7); Absolute Lymphocytes 1.9 10^3/uL (1.2-3.4); Absolute Monocytes 0.7 10^3/uL (0.1-0.6); Absolute Neutrophils 6.1 10^3/uL (1.4-6.5); Hematocrit 38.4 % (37.0-47.0); Hemoglobin 12.8 g/dL (12.0-16.0); Mean Corp Hgb Conc. 33.3 g/dL (33.0-37.0); Mean Corpuscular Hgb 31.1 pg (27.0-31.0); Mean Corpuscular Volume 93.4 fL (81.0-99.0); Mean Platelet Volume 10.5 fL (7.4-10.4); Nucleated Red Blood Cells % 0 %; Platelet Count 292 10^3/uL (130-400); Red Blood Cell Count 4.11 10^6/uL (4.20-5.40); Red Cell Dist. Width 14.5 % (11.5-14.5); White Blood Cell Count 9.1 10^3/uL (4.8-10.8)
[2023-06-26 12:42] LABS: ALT (SGPT) 25 U/L (0-35); AST (SGOT) 32 U/L (14-36); Albumin 4.1 g/dl (3.5-5.0); Alkaline Phosphatase 74 U/L (38-126); Blood Urea Nitrogen 31 mg/dl (7-17); Calcium 9.4 mg/dl (8.4-10.2); Carbon Dioxide 26 mmol/L (22-30); Chloride 102 mmol/L (98-107); Glucose 103 mg/dl (70-99); Magnesium 1.8 mg/dl (1.6-2.3); Potassium 5.1 mmol/L (3.5-5.1); Sodium 137 mmol/L (135-145); Total Bilirubin 0.4 mg/dl (0.2-1.3); eGFR > 60.00
== END ==
LOC: REG 11:22
PROVIDERS: ATTENDING PHYSICIAN Physician Assistant Medical
DX: N17.9 Acute kidney failure, unspecified (principal); C34.92 Malignant neoplasm of unspecified part of left bronchus or lung; C34.91 Malignant neoplasm of unspecified part of right bronchus or lung; I10 Essential (primary) hypertension
CPT/HCPCS: 36415; 80053; 83735; 85025

== ENCOUNTER → 2023-06-29 06:38 | Outpatient (REF) | payer MEDICARE, OTHER, SELFPAY ==
[2023-06-29 07:57] LABS: ALT (SGPT) 28 U/L (0-35); AST (SGOT) 32 U/L (14-36); Albumin 3.9 g/dl (3.5-5.0); Alkaline Phosphatase 75 U/L (38-126); Blood Urea Nitrogen 41 mg/dl (7-17); Calcium 9.3 mg/dl (8.4-10.2); Carbon Dioxide 27 mmol/L (22-30); Chloride 105 mmol/L (98-107); Glucose 85 mg/dl (70-99); Potassium 4.8 mmol/L (3.5-5.1); Sodium 136 mmol/L (135-145); Total Bilirubin 0.3 mg/dl (0.2-1.3); Total Protein 6.5 g/dl (6.3-8.2); eGFR 56.95
[2023-06-29 14:30] LABS: Glycohemoglobin (HgbA1c) 6.1 % (4.0-5.6)
[2023-06-30 13:49] LABS: Fructosamine 251 umol/L (205-285)
== END ==
LOC: REG 06:38
PROVIDERS: ATTENDING PHYSICIAN Internal Medicine Geriatric Medicine; FAMILY PHYSICIAN Internal Medicine
DX: E11.9 Type 2 diabetes mellitus without complications (principal)
CPT/HCPCS: 36415; 80053; 82985; 83036

== ENCOUNTER → 2023-08-21 10:11 | Outpatient (REF) | payer MEDICARE, OTHER, SELFPAY ==
[2023-08-21 12:19] LABS: Calcium 10.1 mg/dl (8.4-10.2); Carbon Dioxide 28 mmol/L (22-30); eGFR > 60.00
[2023-08-21 12:45] LABS: Blood Urea Nitrogen 37 mg/dl (7-17); Chloride 101 mmol/L (98-107); Glucose 90 mg/dl (70-99); Potassium 5.2 mmol/L (3.5-5.1); Sodium 137 mmol/L (135-145)
== END ==
LOC: REG 10:11
PROVIDERS: ATTENDING PHYSICIAN Internal Medicine Interventional Cardiology; FAMILY PHYSICIAN Internal Medicine
DX: Z79.899 Other long term (current) drug therapy (principal)
CPT/HCPCS: 36415; 80048

== ENCOUNTER → 2023-09-08 15:05 | Outpatient (REF) | payer MEDICARE, OTHER, SELFPAY ==
[2023-09-08 16:49] LABS: % Basophils 0.5 % (0-2); % Eosinophils 1.1 % (0-6); % Immature Granulocytes 0.4 % (0-0.5); % Lymphocytes 16.9 % (20.5-51.1); % Monocytes 6.9 % (1.7-9.3); % Neutrophils 74.2 % (42.2-75.2); Absolute Basophils 0.1 10^3/uL (0-0.2); Absolute Eosinophils 0.1 10^3/uL (0-0.7); Absolute Lymphocytes 1.9 10^3/uL (1.2-3.4); Absolute Monocytes 0.8 10^3/uL (0.1-0.6); Absolute Neutrophils 8.4 10^3/uL (1.4-6.5); Hematocrit 36.4 % (37.0-47.0); Hemoglobin 12.3 g/dL (12.0-16.0); Mean Corp Hgb Conc. 33.8 g/dL (33.0-37.0); Mean Corpuscular Hgb 29.9 pg (27.0-31.0); Mean Corpuscular Volume 88.6 fL (81.0-99.0); Mean Platelet Volume 10.3 fL (7.4-10.4); Nucleated Red Blood Cells % 0 %; Platelet Count 295 10^3/uL (130-400); Red Blood Cell Count 4.11 10^6/uL (4.20-5.40); Red Cell Dist. Width 13.7 % (11.5-14.5); White Blood Cell Count 11.4 10^3/uL (4.8-10.8)
[2023-09-08 17:34] LABS: Blood Urea Nitrogen 60 mg/dl (7-17); Calcium 9.4 mg/dl (8.4-10.2); Carbon Dioxide 22 mmol/L (22-30); Chloride 106 mmol/L (98-107); Glucose 122 mg/dl (70-99); Potassium 4.7 mmol/L (3.5-5.1); Sodium 137 mmol/L (135-145); eGFR 38.03
[2023-09-08 18:07] LABS: TSH 2.25 uIU/ml (0.47-4.68)
== END ==
LOC: REG 15:05
PROVIDERS: ATTENDING PHYSICIAN Internal Medicine
DX: I95.9 Hypotension, unspecified (principal); I10 Essential (primary) hypertension
CPT/HCPCS: 36415; 80048; 84443; 85025

== ENCOUNTER → 2023-09-16 09:38 | Outpatient (REF) | payer MEDICARE, OTHER, SELFPAY ==
[2023-09-16 10:28] LABS: Urine Albumin Negative (Neg - Trace); Urine Bilirubin Negative (Negative); Urine Character Clear (Clear); Urine Color Yellow; Urine Glucose Negative (Negative); Urine Ketone Negative (Negative); Urine Leukocyte Negative (Negative); Urine Nitrite Negative (Negative); Urine Occult Blood Negative (Negative); Urine Urobilinogen Negative (Neg - 1+)
[2023-09-16 11:15] LABS: Blood Urea Nitrogen 38 mg/dl (7-17); Calcium 9.4 mg/dl (8.4-10.2); Carbon Dioxide 27 mmol/L (22-30); Chloride 105 mmol/L (98-107); Glucose 91 mg/dl (70-99); Potassium 5.1 mmol/L (3.5-5.1); Sodium 138 mmol/L (135-145); eGFR > 60.00
[2023-09-16 11:42] LABS: Glycohemoglobin (HgbA1c) 6.3 % (4.0-5.6)
[2023-09-16 11:43] LABS: TSH 2.15 uIU/ml (0.47-4.68)
== END ==
LOC: REG 09:38
PROVIDERS: ATTENDING PHYSICIAN Internal Medicine
DX: E11.69 Type 2 diabetes mellitus with other specified complication (principal); N28.9 Disorder of kidney and ureter, unspecified; R60.0 Localized edema; E04.2 Nontoxic multinodular goiter; R53.83 Other fatigue
CPT/HCPCS: 36415; 80048; 81003; 83036; 84443

== ENCOUNTER → 2023-10-20 15:19 | Outpatient (REF) | payer MEDICARE, OTHER, SELFPAY ==
[2023-10-20 18:15] LABS: ALT (SGPT) 24 U/L (0-35); AST (SGOT) 30 U/L (14-36); Alkaline Phosphatase 82 U/L (38-126); Blood Urea Nitrogen 31 mg/dl (7-17); Calcium 8.9 mg/dl (8.4-10.2); Carbon Dioxide 26 mmol/L (22-30); Chloride 106 mmol/L (98-107); Glucose 108 mg/dl (70-99); Potassium 4.6 mmol/L (3.5-5.1); Sodium 138 mmol/L (135-145); Total Bilirubin 0.2 mg/dl (0.2-1.3); Total Protein 6.6 g/dl (6.3-8.2); eGFR 56.95
[2023-10-21 09:08] LABS: Glycohemoglobin (HgbA1c) 6.2 % (4.0-5.6)
[2023-10-23 04:38] LABS: Fructosamine 256 umol/L (205-285)
== END ==
LOC: REG 15:19
PROVIDERS: ATTENDING PHYSICIAN Internal Medicine Geriatric Medicine; FAMILY PHYSICIAN Internal Medicine
DX: E11.9 Type 2 diabetes mellitus without complications (principal)
CPT/HCPCS: 36415; 80053; 82985; 83036

== ENCOUNTER → 2023-11-11 13:31 | Outpatient (REF) | payer MEDICARE, OTHER, SELFPAY | LOC: WDC 13:31 | PROVIDERS: ATTENDING PHYSICIAN Internal Medicine | DX: Z12.31 Encounter for screening mammogram for malignant neoplasm of breast (principal) | CPT/HCPCS: 77063; 77067 ==

== ENCOUNTER → 2023-11-12 15:02 | Outpatient (REF) | payer MEDICARE, OTHER, SELFPAY ==
[2023-11-12 17:21] LABS: Iron 75 ug/dl (37-170)
[2023-11-12 17:30] LABS: Percent Saturation 21 % (20-50); Total Iron Binding Capacity 352 ug/dl (265-497)
[2023-11-12 17:55] LABS: % Basophils 0.6 % (0-2); % Immature Granulocytes 0.2 % (0-0.5); % Lymphocytes 29.9 % (20.5-51.1); % Monocytes 7.9 % (1.7-9.3); % Neutrophils 59.4 % (42.2-75.2); Absolute Basophils 0.1 10^3/uL (0-0.2); Absolute Eosinophils 0.2 10^3/uL (0-0.7); Absolute Lymphocytes 2.7 10^3/uL (1.2-3.4); Absolute Monocytes 0.7 10^3/uL (0.1-0.6); Absolute Neutrophils 5.3 10^3/uL (1.4-6.5); Hematocrit 39.1 % (37.0-47.0); Mean Corp Hgb Conc. 33.2 g/dL (33.0-37.0); Mean Corpuscular Hgb 30.1 pg (27.0-31.0); Mean Corpuscular Volume 90.5 fL (81.0-99.0); Mean Platelet Volume 11.2 fL (7.4-10.4); Nucleated Red Blood Cells % 0 %; Platelet Count 292 10^3/uL (130-400); Red Blood Cell Count 4.32 10^6/uL (4.20-5.40); Red Cell Dist. Width 14.1 % (11.5-14.5); White Blood Cell Count 8.9 10^3/uL (4.8-10.8)
[2023-11-12 17:56] LABS: Ferritin 42.7 ng/ml (11.1-264.0)
== END ==
LOC: REG 15:02
PROVIDERS: ATTENDING PHYSICIAN Internal Medicine Gastroenterology; FAMILY PHYSICIAN Internal Medicine
DX: Q39.4 Esophageal web (principal); E11.69 Type 2 diabetes mellitus with other specified complication
CPT/HCPCS: 36415; 82728; 83540; 83550; 85025

== ENCOUNTER → 2023-11-13 10:48 | Outpatient (REF) | payer MEDICARE, OTHER, SELFPAY ==
[2023-11-13 12:34] LABS: Blood Urea Nitrogen 29 mg/dl (7-17); Calcium 9.2 mg/dl (8.4-10.2); Carbon Dioxide 29 mmol/L (22-30); Chloride 102 mmol/L (98-107); Glucose 101 mg/dl (70-99); Potassium 4.9 mmol/L (3.5-5.1); Sodium 139 mmol/L (135-145); eGFR > 60.00
== END ==
LOC: REG 10:48
PROVIDERS: ATTENDING PHYSICIAN Nurse Practitioner Adult Health; FAMILY PHYSICIAN Internal Medicine
DX: R09.89 Other specified symptoms and signs involving the circulatory and respiratory systems (principal)
CPT/HCPCS: 36415; 80048

== ENCOUNTER → 2023-12-14 09:20 | Outpatient (REF) | payer MEDICARE, OTHER, SELFPAY ==
[2023-12-14 10:53] LABS: Blood Urea Nitrogen 31 mg/dl (7-17); Carbon Dioxide 27 mmol/L (22-30); Chloride 103 mmol/L (98-107); Glucose 112 mg/dl (70-99); Potassium 5.4 mmol/L (3.5-5.1); Sodium 140 mmol/L (135-145); eGFR > 60.00
== END ==
LOC: REG 09:20
PROVIDERS: ATTENDING PHYSICIAN Nurse Practitioner Adult Health
DX: R09.89 Other specified symptoms and signs involving the circulatory and respiratory systems (principal)
CPT/HCPCS: 36415; 80048

== ENCOUNTER → 2023-12-19 08:29 | Outpatient (REF) | payer MEDICARE, OTHER, SELFPAY ==
[2023-12-19 09:36] LABS: Blood Urea Nitrogen 32 mg/dl (7-17); Carbon Dioxide 27 mmol/L (22-30); Chloride 104 mmol/L (98-107); Glucose 100 mg/dl (70-99); Sodium 142 mmol/L (135-145); eGFR > 60.00
== END ==
LOC: REG 08:29
PROVIDERS: ATTENDING PHYSICIAN Nurse Practitioner Adult Health; FAMILY PHYSICIAN Internal Medicine
DX: I10 Essential (primary) hypertension (principal)
CPT/HCPCS: 36415; 80048

== ENCOUNTER → 2023-12-25 11:08 | Outpatient (REF) | payer MEDICARE, OTHER, SELFPAY ==
[2023-12-25 13:32] LABS: Blood Urea Nitrogen 28 mg/dl (7-17); Calcium 8.6 mg/dl (8.4-10.2); Carbon Dioxide 27 mmol/L (22-30); Chloride 104 mmol/L (98-107); Glucose 101 mg/dl (70-99); Potassium 4.7 mmol/L (3.5-5.1); Sodium 141 mmol/L (135-145); eGFR > 60.00
[2023-12-25 13:39] LABS: Glycohemoglobin (HgbA1c) 6.4 % (4.0-5.6)
[2023-12-27 19:52] LABS: Fructosamine 233 umol/L (205-285)
== END ==
LOC: REG 11:08
PROVIDERS: ATTENDING PHYSICIAN Internal Medicine Geriatric Medicine; FAMILY PHYSICIAN Internal Medicine
DX: E11.9 Type 2 diabetes mellitus without complications (principal)
CPT/HCPCS: 36415; 80048; 82985; 83036

== ENCOUNTER 2024-01-14 09:30 | Outpatient (RCR) | payer MEDICARE, OTHER, SELFPAY | END 2024-01-14 15:00 | disposition home or self-care (01) | LOC: PURB 09:30 | PROVIDERS: ATTENDING PHYSICIAN Internal Medicine | DX: J44.9 Chronic obstructive pulmonary disease, unspecified (principal) | CPT/HCPCS: 94625; G0237 ==

== ENCOUNTER → 2024-01-14 10:40 | Outpatient (REF) | payer MEDICARE, OTHER, SELFPAY ==
[2024-01-14 13:25] LABS: IgA 245 mg/dl (70-400)
[2024-01-15 23:28] LABS: Gliadin Peptide (DGP) Ab, IgA <0.72 FLU (0.00-4.99); Gliadin Peptide (DGP) Ab, IgG 1.11 FLU (0.00-4.99)
[2024-01-16 04:54] LABS: Zinc 65.2 ug/dL (60.0-120.0)
== END ==
LOC: REG 10:40
PROVIDERS: FAMILY PHYSICIAN Internal Medicine
DX: R14.0 Abdominal distension (gaseous) (principal); R43.2 Parageusia
CPT/HCPCS: 36415; 82784; 83516; 84630; 86258

== ENCOUNTER 2024-02-09 09:30 | Outpatient (RCR) | payer MEDICARE, OTHER, SELFPAY | END 2024-02-13 23:59 | disposition home or self-care (01) | LOC: PURB 09:30 | PROVIDERS: ATTENDING PHYSICIAN Internal Medicine | DX: J44.9 Chronic obstructive pulmonary disease, unspecified (principal) | CPT/HCPCS: 94625 ==

== ENCOUNTER 2024-03-15 09:30 | Outpatient (RCR) | payer MEDICARE, OTHER, SELFPAY | END 2024-03-15 23:59 | disposition home or self-care (01) | LOC: PURB 09:30 | PROVIDERS: ATTENDING PHYSICIAN Internal Medicine | DX: J44.9 Chronic obstructive pulmonary disease, unspecified (principal) | CPT/HCPCS: 94625 ==

== ENCOUNTER → 2024-03-21 11:27 | Outpatient (REF) | payer MEDICARE, OTHER, SELFPAY ==
[2024-03-21 13:33] LABS: IgA 260 mg/dl (70-400)
[2024-03-23 11:55] LABS: tTG IgA Antibody 5.8 EU/ml (0-19)
[2024-03-23 17:55] LABS: H. pylori Antigen, Fecal Negative (Negative)
[2024-03-23 20:03] LABS: Gliadin Peptide (DGP) Ab, IgA <0.72 FLU (0.00-4.99); Gliadin Peptide (DGP) Ab, IgG 1.04 FLU (0.00-4.99)
[2024-03-24 00:30] LABS: Zinc 79.8 ug/dL (60.0-120.0)
== END ==
LOC: REG 11:27
PROVIDERS: FAMILY PHYSICIAN Internal Medicine; OTHER PHYSICIAN Internal Medicine
DX: R43.2 Parageusia (principal); R14.0 Abdominal distension (gaseous); A04.8 Other specified bacterial intestinal infections
CPT/HCPCS: 36415; 82784; 83516; 84630; 86258; 87338

== ENCOUNTER 2024-03-21 14:58 | Outpatient (RCR) | payer MEDICARE, OTHER, SELFPAY | END 2024-03-21 23:59 | disposition home or self-care (01) | LOC: RPT 14:58 | PROVIDERS: ATTENDING PHYSICIAN Internal Medicine | DX: R42 Dizziness and giddiness (principal); Z73.6 Limitation of activities due to disability; R26.2 Difficulty in walking, not elsewhere classified | CPT/HCPCS: 97112; 97163 ==

== ENCOUNTER 2024-04-13 08:56 | Outpatient (RCR) | payer MEDICARE, OTHER, SELFPAY | END 2024-04-13 23:59 | disposition home or self-care (01) | LOC: RPT 08:56 | PROVIDERS: ATTENDING PHYSICIAN Internal Medicine | DX: M48.00 Spinal stenosis, site unspecified (principal); Z73.6 Limitation of activities due to disability; M79.604 Pain in right leg; M81.0 Age-related osteoporosis without current pathological fracture | CPT/HCPCS: 97010; 97110; 97112; 97163 ==

== ENCOUNTER 2024-04-14 09:30 | Outpatient (RCR) | payer MEDICARE, OTHER, SELFPAY | END 2024-04-15 11:30 | disposition home or self-care (01) | LOC: PURB 09:30 | PROVIDERS: ATTENDING PHYSICIAN Internal Medicine | DX: J44.9 Chronic obstructive pulmonary disease, unspecified (principal) | CPT/HCPCS: 94625 ==

== ENCOUNTER → 2024-04-27 08:38 | Outpatient (REF) | payer MEDICARE, OTHER, SELFPAY ==
[2024-04-27 10:10] LABS: HDL Cholesterol 77 mg/dl; LDL Cholesterol, Calculated 68 mg/dl; Total Cholesterol 157 mg/dl (50-199); Triglyceride 61 mg/dl (10-149); Very Low Density Lipoprotein 12 mg/dl (0-30)
== END ==
LOC: REG 08:38
PROVIDERS: ATTENDING PHYSICIAN Nurse Practitioner Adult Health; FAMILY PHYSICIAN Internal Medicine; OTHER PHYSICIAN Internal Medicine Interventional Cardiology; REFERRING PHYSICIAN Internal Medicine Cardiovascular Disease
DX: I10 Essential (primary) hypertension (principal)
CPT/HCPCS: 36415; 80061

== ENCOUNTER 2024-04-28 09:30 | Outpatient (RCR) | payer MEDICARE, OTHER, SELFPAY | END 2024-04-29 13:42 | disposition home or self-care (01) | LOC: PURB 09:30 | PROVIDERS: ATTENDING PHYSICIAN Internal Medicine | DX: J44.9 Chronic obstructive pulmonary disease, unspecified (principal) | CPT/HCPCS: 94625 ==

== ENCOUNTER 2024-05-11 10:05 | Outpatient (RCR) | payer MEDICARE, OTHER, SELFPAY | END 2024-05-11 23:59 | disposition home or self-care (01) | LOC: RPT 10:05 | PROVIDERS: ATTENDING PHYSICIAN Internal Medicine | DX: R42 Dizziness and giddiness (principal); M48.00 Spinal stenosis, site unspecified (principal); Z73.6 Limitation of activities due to disability; M79.604 Pain in right leg; M81.0 Age-related osteoporosis without current pathological fracture; G89.29 Other chronic pain | CPT/HCPCS: 97110; 97112 ==

== ENCOUNTER → 2024-06-04 07:48 | Outpatient (REF) | payer MEDICARE, OTHER, SELFPAY ==
[2024-06-04 10:35] LABS: Blood Urea Nitrogen 37 mg/dl (7-17); Calcium 9.6 mg/dl (8.4-10.2); Carbon Dioxide 29 mmol/L (22-30); Chloride 105 mmol/L (98-107); Glucose 97 mg/dl (70-99); Potassium 4.6 mmol/L (3.5-5.1); Sodium 139 mmol/L (135-145); eGFR > 60.00
== END ==
LOC: REG 07:48
PROVIDERS: ATTENDING PHYSICIAN Internal Medicine; FAMILY PHYSICIAN Internal Medicine
DX: I26.99 Other pulmonary embolism without acute cor pulmonale (principal)
CPT/HCPCS: 36415; 80048

== ENCOUNTER 2024-06-10 12:54 | Outpatient (RCR) | payer MEDICARE, OTHER, SELFPAY | END 2024-06-13 15:25 | disposition home or self-care (01) | LOC: RPT 12:54 | PROVIDERS: ATTENDING PHYSICIAN Internal Medicine | DX: M48.00 Spinal stenosis, site unspecified (principal); Z73.6 Limitation of activities due to disability; M79.604 Pain in right leg; M81.0 Age-related osteoporosis without current pathological fracture; R42 Dizziness and giddiness; G89.29 Other chronic pain | CPT/HCPCS: 97110; 97112 ==

== ENCOUNTER → 2024-06-18 09:21 | Outpatient (REF) | payer MEDICARE, OTHER, SELFPAY ==
[2024-06-18 10:27] LABS: HDL Cholesterol 76 mg/dl; Total Cholesterol 180 mg/dl (50-199)
[2024-06-18 10:29] LABS: LDL Cholesterol, Calculated 88 mg/dl; Triglyceride 83 mg/dl (10-149); Very Low Density Lipoprotein 16 mg/dl (0-30)
== END ==
LOC: REG 09:21
PROVIDERS: ATTENDING PHYSICIAN Nurse Practitioner Adult Health; FAMILY PHYSICIAN Internal Medicine
DX: I10 Essential (primary) hypertension (principal)
CPT/HCPCS: 36415; 80061

== ENCOUNTER → 2024-08-01 10:15 | Outpatient (REF) | payer MEDICARE, OTHER, SELFPAY ==
[2024-08-01 11:21] LABS: ALT (SGPT) 24 U/L (0-35); AST (SGOT) 26 U/L (14-36); Albumin 4.3 g/dl (3.5-5.0); Alkaline Phosphatase 62 U/L (38-126); Blood Urea Nitrogen 34 mg/dl (7-17); Calcium 9.7 mg/dl (8.4-10.2); Carbon Dioxide 28 mmol/L (22-30); Chloride 108 mmol/L (98-107); Glucose 101 mg/dl (70-99); Potassium 5.1 mmol/L (3.5-5.1); Sodium 141 mmol/L (135-145); Total Bilirubin 0.5 mg/dl (0.2-1.3); Total Protein 7.2 g/dl (6.3-8.2); eGFR > 60.00
[2024-08-02 03:09] LABS: Glycohemoglobin (HgbA1c) 6.4 % (4.0-5.6)
[2024-08-02 20:47] LABS: Fructosamine 268 umol/L (205-285)
== END ==
LOC: REG 10:15
PROVIDERS: ATTENDING PHYSICIAN Internal Medicine Geriatric Medicine; FAMILY PHYSICIAN Internal Medicine
DX: E11.9 Type 2 diabetes mellitus without complications (principal)
CPT/HCPCS: 36415; 80053; 82985; 83036

== ENCOUNTER → 2024-11-01 09:48 | Outpatient (REF) | payer MEDICARE, OTHER, SELFPAY ==
[2024-11-04 00:06] LABS: H. pylori Antigen, Fecal Negative (Negative)
== END ==
LOC: REG 09:48
PROVIDERS: ATTENDING PHYSICIAN Internal Medicine Infectious Disease; REFERRING PHYSICIAN Internal Medicine
DX: R10.9 Unspecified abdominal pain (principal)
CPT/HCPCS: 87338

== ENCOUNTER → 2024-11-04 08:02 | Outpatient (REF) | payer MEDICARE, OTHER, SELFPAY ==
[2024-11-04 09:38] LABS: Hematocrit 40.1 % (37.0-47.0); Hemoglobin 12.9 g/dL (12.0-16.0); Mean Corp Hgb Conc. 32.2 g/dL (33.0-37.0); Mean Corpuscular Volume 90.5 fL (81.0-99.0); Nucleated Red Blood Cells % 0 %; Platelet Count 290 10^3/uL (130-400); Red Cell Dist. Width 14.6 % (11.5-14.5)
[2024-11-04 09:44] LABS: INR 0.93; PT 12.8 Sec (11.4-14.6)
[2024-11-04 10:11] LABS: ALT (SGPT) 25 U/L (0-35); AST (SGOT) 25 U/L (14-36); Albumin 4.2 g/dl (3.5-5.0); Alkaline Phosphatase 61 U/L (38-126); Blood Urea Nitrogen 52 mg/dl (7-17); Calcium 9.8 mg/dl (8.4-10.2); Carbon Dioxide 27 mmol/L (22-30); Chloride 108 mmol/L (98-107); Glucose 99 mg/dl (70-99); Potassium 5.0 mmol/L (3.5-5.1); Sodium 143 mmol/L (135-145); Total Protein 6.9 g/dl (6.3-8.2); eGFR > 60.00
== END ==
LOC: REG 08:02
PROVIDERS: FAMILY PHYSICIAN Internal Medicine
DX: Z01.812 Encounter for preprocedural laboratory examination (principal); N17.9 Acute kidney failure, unspecified
CPT/HCPCS: 36415; 80053; 85025; 85610

== ENCOUNTER 2024-11-08 10:22 | Outpatient (RCR) | payer MEDICARE, OTHER, SELFPAY | END 2024-11-08 23:59 | disposition home or self-care (01) | LOC: RPT 10:22 | PROVIDERS: ATTENDING PHYSICIAN Internal Medicine | DX: M25.562 Pain in left knee (principal); Z73.6 Limitation of activities due to disability; M62.81 Muscle weakness (generalized); R26.89 Other abnormalities of gait and mobility | CPT/HCPCS: 97110; 97162 ==

== ENCOUNTER 2024-12-07 15:02 | Outpatient (RCR) | payer MEDICARE, OTHER, SELFPAY | END 2024-12-07 23:59 | disposition home or self-care (01) | LOC: RPT 15:02 | PROVIDERS: ATTENDING PHYSICIAN Internal Medicine | DX: M47.812 Spondylosis without myelopathy or radiculopathy, cervical region (principal); M25.562 Pain in left knee (principal); Z73.6 Limitation of activities due to disability; M62.81 Muscle weakness (generalized); R26.89 Other abnormalities of gait and mobility | CPT/HCPCS: 97010; 97110; 97112; 97140; 97164 ==

== ENCOUNTER 2024-12-27 09:26 | Outpatient (RCR) | payer MEDICARE, OTHER, SELFPAY | END 2024-12-27 23:59 | disposition home or self-care (01) | LOC: RPT 09:26 | PROVIDERS: ATTENDING PHYSICIAN Internal Medicine | DX: M47.812 Spondylosis without myelopathy or radiculopathy, cervical region (principal); Z73.6 Limitation of activities due to disability; M25.562 Pain in left knee; M62.81 Muscle weakness (generalized); R26.89 Other abnormalities of gait and mobility | CPT/HCPCS: 97010; 97110 ==

== ENCOUNTER → 2025-01-12 09:50 | Outpatient (REF) | payer MEDICARE, OTHER, SELFPAY ==
[2025-01-12 12:15] LABS: Hematocrit 39.0 % (37.0-47.0); Hemoglobin 12.4 g/dL (12.0-16.0); Mean Corp Hgb Conc. 31.8 g/dL (33.0-37.0); Mean Corpuscular Volume 90.9 fL (81.0-99.0); Nucleated Red Blood Cells % 0 %; Platelet Count 252 10^3/uL (130-400); Red Cell Dist. Width 13.9 % (11.5-14.5)
[2025-01-12 13:04] LABS: ALT (SGPT) 26 U/L (0-35); AST (SGOT) 28 U/L (14-36); Albumin 4.2 g/dl (3.5-5.0); Alkaline Phosphatase 59 U/L (38-126); Blood Urea Nitrogen 33 mg/dl (7-17); Calcium 9.3 mg/dl (8.4-10.2); Carbon Dioxide 30 mmol/L (22-30); Chloride 100 mmol/L (98-107); Glucose 110 mg/dl (70-99); Potassium 5.0 mmol/L (3.5-5.1); Sodium 136 mmol/L (135-145); Total Protein 7.1 g/dl (6.3-8.2); eGFR > 60.00
== END ==
LOC: REG 09:50
PROVIDERS: ATTENDING PHYSICIAN Internal Medicine
DX: C34.90 Malignant neoplasm of unspecified part of unspecified bronchus or lung (principal)
CPT/HCPCS: 36415; 80053; 85025

== ENCOUNTER → 2025-02-21 14:21 | Outpatient (REF) | payer MEDICARE, OTHER, SELFPAY | LOC: REG 14:21 | PROVIDERS: FAMILY PHYSICIAN Internal Medicine | DX: A04.8 Other specified bacterial intestinal infections (principal) | CPT/HCPCS: 87338 ==